=== PATIENT | female | born 1995 | race Caucasian/White ===

== ENCOUNTER 2017-08-20 16:02 | Emergency (ER) | payer MEDICAID ==
[~2017-08-20] VITALS: Wt 54.0 kg
[2017-08-20] MEDS ORDERED: LIDOCAINE 1% (MDV) 10 ML INJ INJ STA (16:38)
--- NOTE | 2017-08-20 16:42 | ERD ---
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 HPI This 21-year-old handed female presents to emergency department for laceration repair, patient has a left thumb laceration, ports that she cut South while cutting kiwi 30 min ago, wound is not actively bleeding ant this time tetanus vaccine is unknown. ROS All systems reviewed and are negative except as per history of present illness. Allergies Allergies: Coded Allergies: No Known Allergy (Unverified , 08/20/17) Physical Exam Vitals Vital Signs Date Time Temp Pulse Resp B/P Pulse Ox O2 Delivery O2 Flow Rate FiO2 08/20/17 16:04 98.0 65 20 102/62 98 Physical Exam Const: Well-nourished well-appearing well-hydrated in no acute distress Head: Atraumatic Eyes: Normal Conjunctiva ENT: Normal External Ears, Nose and Mouth. Neck: Full range of motion..~ No meningismus. Resp: Clear to auscultation bilaterally Cardio: Regular rate and rhythm, no murmurs Abd: Soft, non tender, non distended. Normal bowel sounds Skin: Left thumb palmar side, laceration Ext: Hand -left Compartments: Soft Sensation: Intact shoulder/pinky/middle finger/thumb web space Bones: Nontender Snuffbox: Nontender Joints: No effusion Thumb: Flex/Ext: Normal Opposition: Normal Thumbs up: Normal Neur: Awake and alert Psych: Normal Mood and Affect Results 24 hrs Current Medications Medications (Trade) Dose Ordered Sig/Floridalma Route PRN Reason Start Time Stop Time Status Last Admin Dose Admin Diphtheria/ Tetanus/Acell Pertussis (Adacel) 0.5 ml ONCE ONCE IM 08/20/17 17:00 08/20/17 17:01 DC 08/20/17 17:07 Lidocaine HCl (Lidocaine 1% (Mdv) 10 ml) 10 ml ONCE STAT INJ 08/20/17 16:38 08/20/17 16:50 DC Procedures/MDM Laceration Repair by me: Anesthesia: 1% lidocaine locally Location: Thumb palmar side Tendon/Joint/Nerves: No injury Foreign body: None detected after copious irrigation and exploration Technique: Simple Interrupted Sutures Complexity: No subcutaneous sutures/mucosal repair/edge excision Post Closure Length: 2 cm This 21-year-old female presents to the emergency room department for evaluation of a left thumb laceration palmar side, patient ports accidentally slicing her thumb while peeling a Kiwi half an hour prior to arrival in emergency department, is unaware of her last tetanus. Emergency room course includes history and physical exam, laceration will require suturing, repair done by myself see above.Patient's bleeding was easily controlled in the department and there is no indication of anemia. No evidence of compartment syndrome, neurologic injury, vascular injury, open joint, tendon laceration, or foreign body. Plan to discharge patient home with ibuprofen, return to emergency department in 48 hours for wound check, I do not feel that antibiotics are indicated at this time. Change dressing over the wound at least once a day. If dressing becomes wet change immediately. He is on the soap and water to clean your wound. Use [id number] antibiotic ointment twice a day. Observe 1 daily for signs of infection which include increased pain, increased redness especially redness spreading towards your heart, post drainage or increased swelling. If there are any of these signs or if you are not sure return as soon as possible. Patient is stable with no new complaints during ER course, clinically there is no current evidence to tendon injury, possible retained foreign body, open fracture, neurovascular functioning or any other emergent condition appearing to require further evaluation or hospitalization. I feel the patient is stable for discharge at this time. I have discussed results, examination findings, the treatment plan with the patient and family present prior to discharge. Indications for emergent reevaluation, side effects of medication were also discussed. All questions were answered. Patient verbalizes understanding and agrees with plan of care. Departure Diagnosis: Primary Impression: Laceration Condition: Good Patient Instructions: Laceration, Hand [facility] Additional Instructions: Thank you for for coming to [facility] for your care today. Please ask your nurse or provider if you have questions about your care today and do not leave until all your questions have been answered. Please use any medications given as directed and follow-up with your doctor (or the doctor you were referred to) in the next 2-3 days. If you do not have a primary care doctor you may follow up at the [facility] (listed below). You may also use motrin and tylenol as needed for fever and/or pain unless instructed otherwise by your provider or nurse. Indications for more urgent follow-up have been discussed, but you may return to the Emergency Department at ANY time for any worrisome or worsening symptoms. If you have abdominal pain, please know that no test or exam you received is perfect and you should follow up within 8 hours for continued pain. If you had any imaging studies today, such as an X-Ray or CT Scan, these studies will be reviewed later by a radiologist. You will be called if there are important findings that were not identified today, so make sure the contact information you provided at registration is correct. If you received any narcotic pain control medicine today, such as Vicodin, Morphine or Dilaudid, your coordination and judgment may be affected for a number of hours. Please do not drive or operate heavy machinery, and you may want someone to assist you at home. If you were given a prescription for narcotic medication, be aware that it is very addictive- use sparingly and only if necessary. Comments Return to emergency department in 48 hours for wound check MARIA FERNANDA RICE Aug 20, 2017 16:42
[2017-08-20] MEDS ORDERED: DIPHTH/TET/ACEL PERTUSS (ADULT) 0.5 ML VIAL IM ONE (17:00)
[2017-08-20] MEDS ORDERED: IBUP400T22 PO (18:53)
== END 2017-08-20 19:13 | disposition home or self-care (01) ==
LOC: FTE 16:02
DX: S61.012A Laceration without foreign body of left thumb without damage to nail, initial encounter (principal); W26.8XXA Contact with other sharp object(s), not elsewhere classified, initial encounter; Y92.9 Unspecified place or not applicable; Z23 Encounter for immunization
CPT/HCPCS: 12001; 90471; 90715; Z7502

== ENCOUNTER 2018-07-26 07:47 | Emergency (ER) | END 2018-07-26 09:12 | disposition left against medical advice (07) ==